=== PATIENT | male | born 1930 | race Caucasian/White ===

== ENCOUNTER → 2017-08-14 | Outpatient (CLI) | payer OTHER, BC | LOC: RAD 15:56 | DX: M79.89 Other specified soft tissue disorders (principal); J98.11 Atelectasis; Z95.0 Presence of cardiac pacemaker ==

== ENCOUNTER → 2017-08-31 | Outpatient (CLI) | payer OTHER, BC ==
[2017-08-31 09:27] LABS: CREATININE 0.9 mg/dL (0.7-1.3)
== END ==
LOC: CAT 06:26
PROVIDERS: Internal Medicine Pulmonary Disease
DX: J98.11 Atelectasis (principal); J90 Pleural effusion, not elsewhere classified; J43.9 Emphysema, unspecified; I25.10 Atherosclerotic heart disease of native coronary artery without angina pectoris; K80.20 Calculus of gallbladder without cholecystitis without obstruction; R06.02 Shortness of breath; R06.09 Other forms of dyspnea; Z95.1 Presence of aortocoronary bypass graft